=== PATIENT | female | born 1985 | race Caucasian/White ===

== ENCOUNTER 2017-01-08 17:13 | Emergency (ER) | payer OTHER ==
[~2017-01-08 17:13] MED LIST: AMOXICILLIN PO; ATIVAN PO; AURALGAN EAR DR14 ML OT; BACTRIM DS TABL1 TA1 PO; CETIRIZINE HCL10 MG PO; CIPRO PO; DICYCLOMINE HCL20 MG PO; DIFLUCAN PO; FLAGYL PO; FLEXERIL10 MG PO; FLOXIN10 ML OT; GUAIFENESIN200 MG PO; IBUPROFEN800 MG PO; KEFLEX250 M1 PO; KETOPROFEN PO; LEVAQUIN PO; LORTAB 10-5001 EACH PO; MACROBID 100 M100 MG PO; NAPROSYN500 MG PO; NAPROXEN PO; NICOTINE TRANSD21 MG EXT; NO MEDICATIONS; NYQUIL; OMNICEF300 MG PO; ORUDIS75 M1 PO; PERCOCET5/325 PO; PHENERGAN VC W120 M1 PO; PHENERGAN25 MG PO; ROBAXIN500 MG PO; ROBITUSSIN-DM120 ML PO; STERAPRED5 MG/DOSE1 PO; TRAMADOL HCL50 M1 PO; VICODIN 5/1 TAB 5/50 PO; VICODIN 5/500 T1 TAB PO; VOLTAREN75 MG PO; ZITHROMAX PO
== END 2017-01-08 18:08 | disposition home or self-care (01) ==
LOC: SED 17:13
DX: S02.5XXA Fracture of tooth (traumatic), initial encounter for closed fracture (principal); K04.7 Periapical abscess without sinus; K02.9 Dental caries, unspecified; X58.XXXA Exposure to other specified factors, initial encounter; Y92.9 Unspecified place or not applicable
CPT/HCPCS: 99283